=== PATIENT | female | born 1960 | race Hispanic/Latino ===

== ENCOUNTER 2017-10-06 17:35 | Emergency (ER) | payer OTHER ==
[2017-10-06] MEDS ORDERED: HYDROcodone/Acetaminophen 10/325 mg Tablet ONE (18:32)
--- NOTE | 2017-10-06 18:41 | RAD ---
LEFT FOOT THREE VIEWS: HISTORY: Foot pain. FINDINGS: There is a 1 cm enthesophyte within the plantar calcaneus. Degenerative changes in the inner tarsal joints and at the tarsometatarsal joints. Mild DJD at the first MTP joint. No fracture or acute abn ormality identified. IMPRESSION: Degenerative changes as described. No acute fracture identified. POS: [facility]
--- NOTE | 2017-10-06 18:42 | RAD ---
LEFT ANKLE THREE VIEWS: INDICATIONS: Ankle pain. FINDINGS: There is a 1 cm enthesophyte from the plantar calcaneus and a small posterior calcaneal enthesophyte as well. Minimal spurring from the medial malleolus. No fracture identified. IMPRESSION: Enthesophytes from the calcaneus. No fracture or acute abnormality. POS: [facility]
== END 2017-10-06 19:05 | disposition home or self-care (01) ==
LOC: SCSER 17:35
DX: S93.602A Unspecified sprain of left foot, initial encounter (principal); E78.5 Hyperlipidemia, unspecified; F41.9 Anxiety disorder, unspecified; F32.9 Major depressive disorder, single episode, unspecified; F17.210 Nicotine dependence, cigarettes, uncomplicated; W19.XXXA Unspecified fall, initial encounter
CPT/HCPCS: 29515